=== PATIENT | male | born 2000 | race Caucasian/White ===

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

== ENCOUNTER 2018-03-20 09:16 | Emergency (ER) | END 2018-03-20 09:53 | disposition home or self-care (01) ==

== ENCOUNTER 2018-12-05 17:24 | Emergency (ER) | payer OTHER ==
[~2018-12-05] VITALS: Ht 165.1 cm; Wt 77.3 kg
[~2018-12-05 17:24] MED LIST: ACET1TAB40 PO; FAMO-96 PO; NAPR-985 PO; OMEP20CA16 PO; ONDA8TAB14 PO
[2018-12-05 17:45] VITALS: BP 107/49; PULSE 89; RESP 18; Ht 165.1 cm; Wt 77.3 kg
== END 2018-12-06 01:48 | disposition left against medical advice (07) ==
LOC: FTE 17:24
DX: Z53.21 Procedure and treatment not carried out due to patient leaving prior to being seen by health care provider (principal)